=== PATIENT | female | born 1995 | race American Indian/Alaskan Native ===

== ENCOUNTER 2016-05-27 00:02 | Emergency (ER) | payer OTHER ==
[2016-05-27 01:03] LABS: Basophils % (Auto) 0.1 % (0.0-1.8); Eosinophils % (Auto) 0.2 % (0.0-4.3); Hematocrit 33.7 % (30.3-42.9); Mean Corpuscular HGB Conc 33 % (30-34); Mean Corpuscular Volume 78 fl (79-97); Platelet Count 319 K/mm3 (140-440); Red Blood Count 4.32 M/mm3 (3.65-5.03); Red Cell Distribution Width 18.3 % (13.2-15.2); White Blood Count 8.1 K/mm3 (4.5-11.0)
[2016-05-27 01:06] LABS: Mean Corpuscular Hemoglobin 25 pg (28-32)
[2016-05-27 01:21] LABS: Anion Gap 19 mmol/L; Blood Urea Nitrogen 10 mg/dL (7-17); Calcium 8.8 mg/dL (8.4-10.2); Carbon Dioxide 23 mmol/L (22-30); Chloride 99.3 mmol/L (98-107); Glucose 79 mg/dL (65-100); Potassium 3.1 mmol/L (3.6-5.0); Sodium 138 mmol/L (137-145)
[2016-05-27 07:20] LABS: Bilirubin,Urine NEG (Negative); Blood,Urine NEG (Negative); Ketones,Urine 80 mg/dL (Negative); Leukocyte Esterase,Urine NEG (Negative); Mucus,Urine 3+ /HPF; Nitrite,Urine NEG (Negative)
--- NOTE | 2016-05-27 08:53 | Emergency Department Report ---
ED General Adult HPI - General Chief complaint: Abdominal Pain Stated complaint: STOMACH PAIN/VOMITING Time Seen by Provider: 05/27/16 08:52 Source: patient, RN notes reviewed Mode of arrival: Ambulatory Limitations: No Limitations - History of Present Illness Initial comments: This is a 20-year-old female. She is previously unknown to me. She is 2, para 1. Last menstrual periods in March. She presents to the ER with complaint that she thinks that she is . She had pain, but this resolved. She complained of nausea and vomiting. This has since resolved. There is currently no abdominal pain. No irritative or obstructive urinary symptoms. No vaginal bleeding. Resting comfortably. -: Gradual Location: abdomen Severity scale (0 -10): 5 Quality: aching Consistency: now resolved Improves with: none Worsens with: none Associated Symptoms: nausea/vomiting - Related Data Previous Rx's Medication Instructions Recorded Last Taken Type Doxylamine/Pyridoxine HCl 1 each PO QHS PRN #30 tablet. 05/27/16 Unknown Rx [Padmini Wells 10-10 mg Tablet] Potassium Chloride [K-Dur] 20 meq PO QDAY #7 tablet 05/27/16 Unknown Rx Vit W-Ca,Fe,FA(<1 mg) 1 each PO QDAY #30 tablet 05/27/16 Unknown Rx [ Vitamins] Allergies Allergy/AdvReac Type Severity Reaction Status Date / Time No Known Allergies Allergy Verified 05/27/16 00:15 ED Review of Systems ROS: Stated complaint: STOMACH PAIN/VOMITING Other details as noted in HPI Constitutional: no symptoms reported Eyes: as per HPI ENT: as per HPI Respiratory: no symptoms reported Cardiovascular: as per HPI Gastrointestinal: nausea, vomiting Genitourinary: as per HPI Musculoskeletal: as per HPI Skin: as per HPI Neurological: as per HPI Psychiatric: as per HPI Hematological/Lymphatic: as per HPI ED Past Medical Hx - Past Medical History Previous Medical History?: No - Surgical History Past Surgical History?: Yes Additional Surgical History: x1 - Social History Smoking Status: Never Smoker Substance Use Type: None - Medications Home Medications: Home Medications Medication Instructions Recorded Confirmed Last Taken Type Doxylamine/Pyridoxine HCl 1 each PO QHS PRN #30 tablet. 05/27/16 Unknown Rx [Padmini Wells 10-10 mg Tablet] Potassium Chloride [K-Dur] 20 meq PO QDAY #7 tablet 05/27/16 Unknown Rx Vit W-Ca,Fe,FA(<1 mg) 1 each PO QDAY #30 tablet 05/27/16 Unknown Rx [ Vitamins] ED Physical Exam - General Limitations: No Limitations General appearance: alert, in no apparent distress - Head Head exam: Present: atraumatic, normocephalic - Eye Eye exam: Present: normal appearance, EOMI. Absent: nystagmus - ENT ENT exam: Present: normal exam, normal orophraynx, mucous membranes moist, normal external ear exam - Neck Neck exam: Present: normal inspection, full ROM. Absent: tenderness, meningismus - Respiratory Respiratory exam: Present: normal lung sounds bilaterally. Absent: respiratory distress, wheezes, rales, rhonchi, stridor, decreased breath sounds - Cardiovascular Cardiovascular Exam: Present: regular rate, normal rhythm, normal heart sounds. Absent: bradycardia, tachycardia, irregular rhythm, systolic murmur, diastolic murmur, rubs, gallop - GI/Abdominal GI/Abdominal exam: Present: soft, normal bowel sounds. Absent: distended, tenderness, guarding, rebound, rigid, pulsatile mass - Extremities Exam Extremities exam: Present: normal inspection, full ROM, normal capillary refill. Absent: tenderness, pedal edema, joint swelling, calf tenderness - Back Exam Back exam: Present: normal inspection, full ROM. Absent: tenderness, CVA tenderness (R), CVA tenderness (L), muscle spasm, paraspinal tenderness, vertebral tenderness - Neurological Exam Neurological exam: Present: alert, oriented X3, normal gait, other (Extraocular movements intact. Tongue midline. No facial droop. Facial sensation intact to light touch in the V1, V2, V3 distribution bilaterally. 5 and 5 strength in 4 extremities.. Sensation is intact to light touch in 4 extremities.). Absent : motor sensory deficit - Psychiatric Psychiatric exam: Present: normal affect, normal mood - Skin Skin exam: Present: warm, dry, intact, normal color. Absent: rash ED Course Vital Signs 05/27/16 05/27/16 05/27/16 00:12 04:11 07:23 Temperature 97.6 F 98.1 F 97.4 F L Pulse Rate 69 62 71 Respiratory 18 18 18 Rate Blood Pressure 112/71 114/71 Blood Pressure 111/59 [Left] O2 Sat by Pulse 100 100 100 Oximetry 05/27/16 05/27/16 05/27/16 07:56 08:00 08:10 Temperature Pulse Rate 65 63 65 Respiratory 15 19 19 Rate Blood Pressure 102/62 105/58 105/58 Blood Pressure [Left] O2 Sat by Pulse 100 100 100 Oximetry 05/27/16 05/27/16 05/27/16 08:20 08:30 08:40 Temperature Pulse Rate 66 64 62 Respiratory 19 18 20 Rate Blood Pressure 105/58 105/58 105/58 Blood Pressure [Left] O2 Sat by Pulse 100 100 100 Oximetry 05/27/16 05/27/16 05/27/16 08:50 09:00 09:10 Temperature Pulse Rate 61 70 68 Respiratory 20 20 19 Rate Blood Pressure 105/58 106/48 105/58 Blood Pressure [Left] O2 Sat by Pulse 100 98 Oximetry 05/27/16 05/27/16 05/27/16 10:06 10:10 10:20 Temperature Pulse Rate 76 68 91 H Respiratory 18 15 14 Rate Blood Pressure 123/84 123/84 123/84 Blood Pressure [Left] O2 Sat by Pulse 100 96 99 Oximetry 05/27/16 05/27/16 05/27/16 10:30 10:40 10:50 Temperature Pulse Rate 68 74 65 Respiratory 21 15 22 Rate Blood Pressure 106/48 106/48 106/48 Blood Pressure [Left] O2 Sat by Pulse 100 100 100 Oximetry 05/27/16 05/27/16 05/27/16 11:00 11:10 11:20 Temperature Pulse Rate 74 62 66 Respiratory 17 12 14 Rate Blood Pressure 115/76 123/84 123/84 Blood Pressure [Left] O2 Sat by Pulse 100 98 100 Oximetry 05/27/16 05/27/16 05/27/16 11:30 11:40 11:50 Temperature Pulse Rate 64 71 73 Respiratory 12 13 21 Rate Blood Pressure 123/84 123/84 123/84 Blood Pressure [Left] O2 Sat by Pulse 100 100 100 Oximetry 05/27/16 05/27/16 12:00 12:10 Temperature Pulse Rate 68 85 Respiratory 20 15 Rate Blood Pressure 111/49 111/49 Blood Pressure [Left] O2 Sat by Pulse 97 100 Oximetry - Reevaluation(s) Reevaluation #1: 05/27/16 10:24 Differential diagnosis: Nausea and vomiting of , hyperemesis, incidental subchorionic hemorrhage Assessment and plan: 20-year-old female with resolved nausea and vomiting of . My bedside ultrasound demonstrates an intrauterine . A formal radiology ultrasound demonstrates an IUP, with a complex right-sided ovarian mass, and a moderate subchorionic hemorrhage. The patient is afebrile with reassuring vital signs, with no abdominal tenderness, rebound or guarding. She is tolerating liquid feeds, felt improved after Zofran, and D5 half normal saline. A type and screen is currently pending to assess the patient's Rh status at this point. Patient will be discharged with nausea medication, vitamins, instructions to follow up with outpatient obstetrics. Given that she is not having abdominal tenderness or pain at this time, and that there is no vaginal bleeding, I do not believe a gynecologic examination is emergently required. Reevaluation #2: 05/27/16 10:37 Patient found to require RhoGAM. RhoGAM is ordered. The patient is instructed as to the importance of this. She verbalizes understanding, and authorizes RhoGAM administration. She is tolerating liquid feeds at this time. ED Medical Decision Making - Lab Data Result diagrams: 05/27/16 00:28 05/27/16 00:28 Vital Signs 05/27/16 05/27/16 05/27/16 00:12 04:11 07:23 Temperature 97.6 F 98.1 F 97.4 F L Pulse Rate 69 62 71 Respiratory 18 18 18 Rate Blood Pressure 112/71 114/71 Blood Pressure 111/59 [Left] O2 Sat by Pulse 100 100 100 Oximetry 05/27/16 05/27/16 05/27/16 07:56 08:00 08:10 Temperature Pulse Rate 65 63 65 Respiratory 15 19 19 Rate Blood Pressure 102/62 105/58 105/58 Blood Pressure [Left] O2 Sat by Pulse 100 100 100 Oximetry 05/27/16 05/27/16 05/27/16 08:20 08:30 08:40 Temperature Pulse Rate 66 64 62 Respiratory 19 18 20 Rate Blood Pressure 105/58 105/58 105/58 Blood Pressure [Left] O2 Sat by Pulse 100 100 100 Oximetry 05/27/16 05/27/16 08:50 09:00 Temperature Pulse Rate 61 70 Respiratory 20 20 Rate Blood Pressure 105/58 106/48 Blood Pressure [Left] O2 Sat by Pulse 100 98 Oximetry Lab Results 05/27/16 05/27/16 05/27/16 Range/Units 00:28 00:28 00:28 WBC 8.1 (4.5-11.0) K/mm3 RBC 4.32 (3.65-5.03) M/mm3 Hgb 11.0 (10.1-14.3) gm/dl Hct 33.7 (30.3-42.9) % MCV 78 L (79-97) fl MCH 25 L (28-32) pg MCHC 33 (30-34) % RDW 18.3 H (13.2-15.2) % Plt Count 319 (140-440) K/mm3 Lymph % (Auto) 24.7 (13.4-35.0) % [place] % (Auto) 7.1 (0.0-7.3) % Eos % (Auto) 0.2 (0.0-4.3) % Baso % (Auto) 0.1 (0.0-1.8) % Lymph # 2.0 (1.2-5.4) K/mm3 [place] # 0.6 (0.0-0.8) K/mm3 Eos # 0.0 (0.0-0.4) K/mm3 Baso # 0.0 (0.0-0.1) K/mm3 Seg Neutrophils % 67.9 (40.0-70.0) % Seg Neutrophils # 5.5 (1.8-7.7) K/mm3 Sodium 138 (137-145) mmol/L Potassium 3.1 L (3.6-5.0) mmol/L Chloride 99.3 (98-107) mmol/L Carbon Dioxide 23 (22-30) mmol/L Anion Gap 19 mmol/L BUN 10 (7-17) mg/dL Creatinine 0.5 L (0.7-1.2) mg/dL Estimated GFR > 60 ml/min BUN/Creatinine Ratio 20.00 % Glucose 79 (65-100) mg/dL Calcium 8.8 (8.4-10.2) mg/dL HCG, Qual Positive (Negative) HCG, Quant (0-4) mIU/mL Urine Color (Yellow) Urine Turbidity (Clear) Urine pH (5.0-7.0) Ur Specific [place] (1.003-1.030) Urine Protein (Negative) mg/dL Urine Glucose (UA) (Negative) mg/dL Urine Ketones (Negative) mg/dL Urine Blood (Negative) Urine Nitrite (Negative) Urine Bilirubin (Negative) Urine Urobilinogen (<2.0) mg/dL Ur Leukocyte Esterase (Negative) Urine WBC (Auto) (0.0-6.0) /HPF Urine RBC (Auto) (0.0-6.0) /HPF U Epithel Cells (Auto) (0-13.0) /HPF Urine Mucus /HPF 05/27/16 05/27/16 Range/Units 06:54 09:00 WBC (4.5-11.0) K/mm3 RBC (3.65-5.03) M/mm3 Hgb (10.1-14.3) gm/dl Hct (30.3-42.9) % MCV (79-97) fl MCH (28-32) pg MCHC (30-34) % RDW (13.2-15.2) % Plt Count (140-440) K/mm3 Lymph % (Auto) (13.4-35.0) % [place] % (Auto) (0.0-7.3) % Eos % (Auto) (0.0-4.3) % Baso % (Auto) (0.0-1.8) % Lymph # (1.2-5.4) K/mm3 [place] # (0.0-0.8) K/mm3 Eos # (0.0-0.4) K/mm3 Baso # (0.0-0.1) K/mm3 Seg Neutrophils % (40.0-70.0) % Seg Neutrophils # (1.8-7.7) K/mm3 Sodium (137-145) mmol/L Potassium (3.6-5.0) mmol/L Chloride (98-107) mmol/L Carbon Dioxide (22-30) mmol/L Anion Gap mmol/L BUN (7-17) mg/dL Creatinine (0.7-1.2) mg/dL Estimated GFR ml/min BUN/Creatinine Ratio % Glucose (65-100) mg/dL Calcium (8.4-10.2) mg/dL HCG, Qual (Negative) HCG, Quant [id number] H (0-4) mIU/mL Urine Color Yellow (Yellow) Urine Turbidity Clear (Clear) Urine pH 6.0 (5.0-7.0) Ur Specific [place] 1.029 (1.003-1.030) Urine Protein 30 mg/dl (Negative) mg/dL Urine Glucose (UA) Neg (Negative) mg/dL Urine Ketones 80 (Negative) mg/dL Urine Blood Neg (Negative) Urine Nitrite Neg (Negative) Urine Bilirubin Neg (Negative) Urine Urobilinogen 2.0 (<2.0) mg/dL Ur Leukocyte Esterase Neg (Negative) Urine WBC (Auto) 2.0 (0.0-6.0) /HPF Urine RBC (Auto) 2.0 (0.0-6.0) /HPF U Epithel Cells (Auto) 3.0 (0-13.0) /HPF Urine Mucus 3+ /HPF - Radiology Data Radiology results: report reviewed, image reviewed Transvaginal ultrasound demonstrates intrauterine , there is a complex right-sided ovarian mass, there is a moderate subchorionic hemorrhage, heart motion 167 beats per minute. Critical care attestation.: If time is entered above; I have spent that time in minutes in the direct care of this critically ill patient, excluding procedure time. ED Disposition Clinical Impression: Nausea and vomiting during , Hypokalemia Disposition: DISCHARGED TO HOME OR SELFCARE Is pt being admited?: No Does the pt Need Aspirin: No Condition: Stable Instructions: Hyperemesis Gravidarum (ED) Additional Instructions: Take the nausea medication, vitamins, potassium supplementation as directed. Ultrasound demonstrates a within the uterus, with a small amount of blood within the uterus. You may be experiencing an early threatened miscarriage. you may begin to start bleeding; this is a possibility. Rest and avoid heavy lifting, avoid sex, avoid strenuous physical activity. Follow up with an [facility]UNICATIONS DISPATCHER doctor within the next week to 2 weeks. I have listed numerous [facility] COMMUNICATIONS DISPATCHER doctors for your convenience. Please note that the ultrasound also demonstrated a complex right-sided ovarian mass which should be followed up. Not following up for this may result an undiagnosed tumor/cancer/malignancy. Avoid consumption of alcohol, Motrin, ibuprofen, Aleve. Return to the ER right away with new pain, worsened pain, migration of pain, intractable nausea or vomiting, inability to tolerate liquid feeds, bleeding more than 2 pads soaked through and through per hour. Prescriptions: Doxylamine/Pyridoxine HCl [Padmini Wells 10-10 mg Tablet] 1 each PO QHS PRN #30 tablet. PRN Reason: Nausea Potassium Chloride [K-Dur] 20 meq PO QDAY #7 tablet Vit W-Ca,Fe,FA(<1 mg) [ Vitamins] 1 each PO QDAY #30 tablet Referrals: PRIMARY CAREMD [Primary Care Provider] - 3-5 Days RENNY TURCIOS MD [Staff Physician] - 3-5 Days [facility] [Provider Group] - 3-5 Days [facility] [Provider Group] - 3-5 Days Forms: Work/School Release Form(ED)
[2016-05-27] MEDS ORDERED: D5/0.45NS 1,000 ML IV SCH (10:00)
--- NOTE | 2016-05-27 10:18 | Ultrasound Report ---
OB ultrasound: Endovaginal and transabdominal imaging demonstrates a uterus measuring 8.4 x 8.5 x 11 cm. This is an intrauterine gestational sac containing a single gestation with a pole length of 32 mm which is equivalent to a 10 week gestation. There is heart motion of 167 beats per minute. There is a moderate sized subchorionic inhomogeneous collection measuring 2.9 cm. The right ovary measures 3.5 cm and contains a 2.1 cm complex mass. The left ovary measures 3.4 cm and is not otherwise remarkable. Small amount of fluid is identified in the cul-de-sac. Impression: 1. Viable, pepe IUP. 2. Moderate subchorionic hemorrhage.
[2016-05-27] MEDS ORDERED: K-DUR PO ONE ×2 (10:25→12:09)
[2016-05-27] MEDS ORDERED: ZOFRAN ONE (10:47)
[2016-05-27] MEDS ORDERED: ZOFRAN IV ONE (10:51)
[2016-05-27 12:19] VITALS: BP 111/49
== END 2016-05-27 12:43 | disposition home or self-care (01) ==
LOC: ED 00:02
DX: O21.0 Mild hyperemesis gravidarum (principal); E87.6 Hypokalemia; Z3A.00 Weeks of gestation of pregnancy not specified
CPT/HCPCS: 36415; 76801; 76817; 80048; 81001; 84702; 84703; 85025; 86850; 86900; 86901; 96361; 96374; 99284; J2405; J2790